=== PATIENT | female | born 1990 | race Two or more races ===

== ENCOUNTER 2020-04-27 21:24 | Inpatient (IN) | payer BC, OTHER ==
[~2020-04-27] VITALS: Ht 157.5 cm; Wt 92.0 kg
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
--- NOTE | 2020-04-27 21:52 | NUR ---
PT RECIEVED 2 GM ROCEPHIN AND 500 MG FLAGL LIBRARIAN SPECIALIST. PT HAS NO NEEDS AT THIS TIME LAB AT BEDSIDE
[2020-04-27] MEDS ORDERED: MECL12.590 PO (21:55)
[2020-04-27] MEDS ORDERED: ONDA4TAB7 PO (21:55)
[2020-04-27 22:02] LABS: BASOPHILS % (AUTO) 1 % (0-1); EOSINOPHILS % (AUTO) 0 % (1-7); LYMPHOCYTES % (AUTO) 22 % (22-44); MEAN CORPUSCULAR HEMOGLOBIN 29.8 pg (27.0-34.8); MEAN CORPUSCULAR HGB CONC 33.3 g/dL (32.4-35.8); MEAN PLATELET VOLUME 8.5 fL (7.4-10.4); MONOCYTES % (AUTO) 5 % (2-9); NEUTROPHILS % (AUTO) 72 % (42-75); PLATELET COUNT 331 x10^3/uL (130-400); RED BLOOD COUNT 4.29 x10^6/uL (3.82-5.3); RED CELL DISTRIBUTION WIDTH 13.8 % (9.6-15.2)
[2020-04-27 22:04] LABS: MD NO
[2020-04-27 22:13] LABS: ALANINE AMINOTRANSFERASE 254 U/L (12-78); ALBUMIN 3.5 g/dL (3.4-5.0); ANION GAP 6 mmol/L (5-15); CALCIUM 8.6 mg/dL (8.5-10.1); CHLORIDE 108 mmol/L (98-107)
[2020-04-27 22:15] LABS: ALKALINE PHOSPHATASE 142 U/L (45-117); BILIRUBIN,TOTAL 1.4 mg/dL (0.2-1.0); TOTAL PROTEIN 7.2 g/dL (6.4-8.2)
[2020-04-27 22:56] VITALS: BP 116/78
[2020-04-27] MEDS ORDERED: hydrALAzine 20 MG/ML, 1ML IVPush PRN (23:00)
[2020-04-27] MEDS ORDERED: ONDANSETRON 2MG/ML, 2ML IVPush PRN (23:00)
[2020-04-27] MEDS ORDERED: ONDANSETRON ODT 4 MG PO PRN (23:00)
[2020-04-27] MEDS ORDERED: D5%-0.9% NACL 1,000 ML IV SCH (23:00)
[2020-04-27] MEDS ORDERED: morphine SULFATE 10 MG/ML, 1ML IVPush PRN (23:00)
[2020-04-27] MEDS ORDERED: PROMETHAZINE 25 MG/ML, 1ML IM PRN (23:00)
[2020-04-27] MEDS ORDERED: OXYcodone IR 5MG TABLET PO PRN (23:00)
[2020-04-27] MEDS ORDERED: CEFTRIAXONE PMX 2GM/50ML 50 ML IVPB SCH (23:00)
[2020-04-27] MEDS: METRONIDAZOLE PMX 500MG/100ML 100 ML IV SCH (23:39)
[2020-04-28 00:07] VITALS: BP 120/72
[2020-04-28 05:53] LABS: BASOPHILS % (AUTO) 1 % (0-1); EOSINOPHILS % (AUTO) 1 % (1-7); LYMPHOCYTES % (AUTO) 26 % (22-44); MEAN CORPUSCULAR HEMOGLOBIN 30.3 pg (27.0-34.8); MEAN CORPUSCULAR HGB CONC 33.7 g/dL (32.4-35.8); MEAN PLATELET VOLUME 8.9 fL (7.4-10.4); MONOCYTES % (AUTO) 6 % (2-9); NEUTROPHILS % (AUTO) 66 % (42-75); PLATELET COUNT 293 x10^3/uL (130-400); RED BLOOD COUNT 3.99 x10^6/uL (3.82-5.3); RED CELL DISTRIBUTION WIDTH 13.8 % (9.6-15.2)
[2020-04-28 05:54] LABS: MD NO
[2020-04-28 06:01] LABS: ALBUMIN 3.3 g/dL (3.4-5.0); ANION GAP 4 mmol/L (5-15); CALCIUM 8.5 mg/dL (8.5-10.1); CHLORIDE 108 mmol/L (98-107)
[2020-04-28 06:10] LABS: ALANINE AMINOTRANSFERASE 239 U/L (12-78); ALKALINE PHOSPHATASE 128 U/L (45-117); BILIRUBIN,TOTAL 0.5 mg/dL (0.2-1.0); CHOL/HDL RATIO 3.2; CHOLESTEROL, TOTAL 179 mg/dL (140-239); CREATININE 0.97 mg/dL (0.55-1.02); HDL CHOL % 31 % (28-40); HDL CHOLESTEROL (DIRECT) 56 mg/dL (40-60); LDL CHOLESTEROL,CALCULATED 89 mg/dL (54-169); LDL/HDL RATIO 1.6 (0.5-3.0); TOTAL PROTEIN 6.6 g/dL (6.4-8.2); TRIGLYCERIDES 169 mg/dL (50-200); VLDL CHOLESTEROL 34 mg/dL (0-25)
[2020-04-28] MEDS ORDERED: OXYcodone IR 5MG TABLET PO PRN (07:00)
[2020-04-28 07:28] LABS: INTERNATIONAL NORMALIZED RATIO 1.03 (0.93-1.1)
[2020-04-28] MEDS ORDERED: morphine SULFATE 10 MG/ML, 1ML IVPush PRN (08:00)
[2020-04-28 08:50] VITALS: BP 117/80
[2020-04-28] MEDS: METRONIDAZOLE PMX 500MG/100ML 100 ML IV SCH ×2 (10:05→19:11)
[2020-04-28] MEDS: HEPARIN 5,000 UNITS/ML, 1ML SQ SCH ×2 (10:05→18:00)
[2020-04-28] MEDS: SODIUM CHLORIDE 0.9% 1,000 ML IV SCH ×2 (10:23→21:02)
[2020-04-28 12:47] VITALS: BP 127/78
[2020-04-28] MEDS ORDERED: MIDAZOLAM 1 MG/ML, 2ML ONE (13:47)
[2020-04-28] MEDS ORDERED: FENTANYL PF 250 MCG/5ML ONE (13:48)
[2020-04-28] MEDS ORDERED: ROCURONIUM 10MG/ML,5ML ONE (13:48)
[2020-04-28] MEDS ORDERED: DEXAMETHASONE 4 MG/ML, 1ML ONE ×2 (13:48)
[2020-04-28] MEDS ORDERED: PROPOFOL 10 MG/ML, 20ML ONE (13:48)
[2020-04-28] MEDS ORDERED: ONDANSETRON 2MG/ML, 2ML ONE ×2 (13:48→14:42)
[2020-04-28] MEDS ORDERED: EPINEPHRINE 1 MG/ML, 1ML ONE (13:50)
[2020-04-28] MEDS ORDERED: BUPIVACAINE/PF 0.5% ONE (13:50)
[2020-04-28] MEDS ORDERED: BUPIVACAINE/PF-EPI 0.5% 1:200K INFIL ONE (14:21)
[2020-04-28] MEDS ORDERED: SUGAMMADEX 200 MG/2 ML IVPush ONE (14:42)
[2020-04-28] MEDS ORDERED: FENTANYL PF 100 MCG/2ML ONE ×2 (14:44→15:41)
[2020-04-28] MEDS ORDERED: MEPERIDINE/PF 25MG/ML,1ML ONE (15:16)
[2020-04-28] MEDS ORDERED: ONDANSETRON 2MG/ML, 2ML IVPush PRN (15:30)
[2020-04-28] MEDS ORDERED: OXYcodone 5 MG/5 ML ORAL.SOL UDC ONE (15:30)
[2020-04-28] MEDS ORDERED: hydrALAzine 20 MG/ML, 1ML IV PRN (15:30)
[2020-04-28] MEDS ORDERED: DIAZEPAM 5 MG/ML, 2ML IVPush PRN (15:30)
[2020-04-28] MEDS ORDERED: OXYcodone 5 MG/5 ML ORAL.SOL UDC PO PRN (15:30)
[2020-04-28] MEDS ORDERED: LABETALOL 5MG/ML, 20ML IV PRN (15:30)
[2020-04-28] MEDS ORDERED: DIPHENHYDRAMINE 50 MG/ML, 1ML IVPush PRN ×2 (15:30)
[2020-04-28] MEDS ORDERED: EPHEDRINE 50 MG/ML, 1ML IVPush PRN (15:30)
[2020-04-28] MEDS ORDERED: MIDAZOLAM 1 MG/ML, 2ML IV PRN (15:30)
[2020-04-28] MEDS ORDERED: ACETAMINOPHEN 325 MG TABLET PO PRN (15:30)
[2020-04-28] MEDS ORDERED: HYDROmorphone 1 MG/ML, 1ML INJ IVPush PRN (15:30)
[2020-04-28] MEDS ORDERED: PROMETHAZINE 25 MG/ML, 1ML IVPush PRN (15:30)
[2020-04-28] MEDS ORDERED: ACETAMINOPHEN 650 MG/20.3 ML UDC ONE (15:30)
[2020-04-28] MEDS ORDERED: MEPERIDINE/PF 25MG/0.5ML IVPush PRN (15:30)
[2020-04-28] MEDS ORDERED: ALBUTEROL SULFATE 2.5 MG/3 ML NPPB PRN (15:30)
[2020-04-28] MEDS ORDERED: PROMETHAZINE 12.5 MG SUPP PR PRN (15:30)
[2020-04-28] MEDS ORDERED: FENTANYL PF 100 MCG/2ML IV PRN (15:30)
[2020-04-28 16:15] VITALS: BP 136/80
[2020-04-28] MEDS ORDERED: ENOXAPARIN 40 MG/0.4 ML SQ SCH (17:30)
[2020-04-28] MEDS ORDERED: HYDROmorphone 2 MG/ML, 1ML IVPush PRN (17:30)
[2020-04-28] MEDS ORDERED: ONDANSETRON 2MG/ML, 2ML IV PRN (17:30)
[2020-04-28] MEDS ORDERED: morphine SULFATE 10 MG/ML, 1ML IV PRN (17:30)
[2020-04-28] MEDS: KETOROLAC 30 MG/1 ML IV PRN (17:48)
[2020-04-28] MEDS: POTASSIUM CHLORIDE 20 MEQ in D5%-0.45% NACL 1,000 ML IV SCH (18:20)
[2020-04-28 19:55] VITALS: BP 126/80
[2020-04-28] MEDS: HYDROcodone/APAP 5/325 TABLET PO PRN ×2 (21:04→21:53)
[2020-04-28] MEDS: SODIUM CHLORIDE FLUSH 10ML SYR IVF SCH (21:05)
[2020-04-29] MEDS: KETOROLAC 30 MG/1 ML IV PRN ×2 (00:27→11:48)
[2020-04-29 00:36] VITALS: BP 120/77
[2020-04-29] MEDS: POTASSIUM CHLORIDE 20 MEQ in D5%-0.45% NACL 1,000 ML IV SCH (01:54)
[2020-04-29] MEDS: METRONIDAZOLE PMX 500MG/100ML 100 ML IV SCH (02:34)
[2020-04-29 04:44] VITALS: BP 111/66
[2020-04-29] MEDS: HYDROcodone/APAP 5/325 TABLET PO PRN (05:25)
[2020-04-29 05:44] LABS: BASOPHILS % (AUTO) 1 % (0-1); EOSINOPHILS % (AUTO) 0 % (1-7); LYMPHOCYTES % (AUTO) 14 % (22-44); MEAN CORPUSCULAR HEMOGLOBIN 29.8 pg (27.0-34.8); MEAN CORPUSCULAR HGB CONC 33.2 g/dL (32.4-35.8); MONOCYTES % (AUTO) 4 % (2-9); NEUTROPHILS % (AUTO) 81 % (42-75); PLATELET COUNT 295 x10^3/uL (130-400); RED BLOOD COUNT 3.79 x10^6/uL (3.82-5.3); RED CELL DISTRIBUTION WIDTH 14.1 % (9.6-15.2)
[2020-04-29 05:52] LABS: MD NO
[2020-04-29 05:54] LABS: ANION GAP 5 mmol/L (5-15); CALCIUM 7.8 mg/dL (8.5-10.1); CHLORIDE 108 mmol/L (98-107)
[2020-04-29 05:58] LABS: ALANINE AMINOTRANSFERASE 162 U/L (12-78); ALKALINE PHOSPHATASE 106 U/L (45-117); BILIRUBIN,TOTAL 0.3 mg/dL (0.2-1.0); TOTAL PROTEIN 6.2 g/dL (6.4-8.2)
[2020-04-29 06:40] VITALS: BP 110/72
[2020-04-29] MEDS ORDERED: HYDROcodone/APAP 5/325 TABLET PO PRN (08:30)
[2020-04-29] MEDS ORDERED: metroNIDAZOLE 500 MG TABLET PO SCH (09:00)
[2020-04-29] MEDS: SODIUM CHLORIDE FLUSH 10ML SYR IVF SCH (09:02)
[2020-04-29] MEDS ORDERED: METR500T PO (10:02)
[2020-04-29] MEDS ORDERED: AMOX-291 PO (10:02)
[2020-04-29] MEDS: SODIUM CHLORIDE 0.9% 1,000 ML IV SCH (11:36)
[2020-04-29] MEDS ORDERED: POTASSIUM CHLORIDE 20 MEQ in D5%-0.45% NACL 1,000 ML IV SCH (17:30)
== END 2020-04-29 13:05 | disposition home or self-care (01) | DRG 419 ==
LOC: ED 21:54 → EDIP 22:21 → 3N 22:53 → 4NE 04-28 16:16 → DCLOUNGE 04-29 12:59
PROVIDERS: ADMIT Internal Medicine; ATTEND Internal Medicine
PROC: 0FT44ZZ Resection of Gallbladder, Percutaneous Endoscopic Approach (ICD-10-PCS; principal; 2020-04-28 13:15)
DX: K80.62 Calculus of gallbladder and bile duct with acute cholecystitis without obstruction (principal); E66.9 Obesity, unspecified; Z68.37 Body mass index [BMI] 37.0-37.9, adult; Z20.822 Contact with and (suspected) exposure to COVID-19; R79.89 Other specified abnormal findings of blood chemistry; R74.01 Elevation of levels of liver transaminase levels; R74.8 Abnormal levels of other serum enzymes
CPT/HCPCS: 36415; 96372; 96374; 96375; 99285; J7042; S0020; 74181; 80053; 80061; 83036; 83690; 83735; 84100; 84443; 84703; 85025; 85610; 87635; 88304; G0378; J0171; J0696; J1100; J1644; J1650; J1885; J2175; J2250; J2405; J2704; J3010; J3480; J7030